=== PATIENT | female | born 1990 | race American Indian/Alaskan Native ===

== ENCOUNTER 2019-07-26 07:26 | Emergency (ER) | payer MEDICAID ==
[2019-07-26] MEDS ORDERED: REGLAN IM ONE (08:22)
[2019-07-26] MEDS ORDERED: MORPHINE IM ONE (08:22)
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
--- NOTE | 2019-07-26 09:35 | Cat Scan Report ---
CT HEAD WITHOUT CONTRAST INDICATION : Headache for 3 days. TECHNIQUE: Axial imaging performed from the skull apex through the skull base without the use of con trast. Sagittal and coronal reformatted images. All CT scans at this location are performed using C T dose reduction for ALARA by means of automated exposure control. COMPARISON: None FINDINGS: Parenchyma: No acute intracranial hemorrhage or parenchymal abnormality. Ventricles: Ventricles are normal in size and appear symmetric. Bones: No acute osseous abnormality. Sinuses: Sinuses and mastoid air cells are clear. Soft tissues: Soft tissues including the orbits appear normal. IMPRESSION: No acute abnormality. Signer Name: Jimmy Rnagel Jr, MD Signed: 07/26/2019 9:31 AM Workstation Name: [id number]
[2019-07-26 11:50] VITALS: BP 134/90
== END 2019-07-26 11:49 | disposition home or self-care (01) ==
LOC: ED 07:26
DX: R51 Headache (principal); F17.200 Nicotine dependence, unspecified, uncomplicated; R11.2 Nausea with vomiting, unspecified; Z90.49 Acquired absence of other specified parts of digestive tract
CPT/HCPCS: 70450; 96372; 99283; J2270; J2765

== ENCOUNTER 2019-08-31 06:09 | Inpatient (IN) | payer MEDICAID ==
[2019-08-31] MEDS ORDERED: MORPHINE IV ONE (06:41)
[2019-08-31] MEDS ORDERED: NACL 0.9% 1000 ML 1,000 ML IV ONE ×2 (06:41→12:11)
[2019-08-31] MEDS ORDERED: ZOFRAN IV ONE ×2 (06:41→08:45)
[2019-08-31 06:45] LABS: Basophils % (Auto) 0.2 % (0.0-1.8); Eosinophils % (Auto) 0.1 % (0.0-4.3); Hematocrit 39.6 % (30.3-42.9); Hemoglobin 13.8 gm/dl (10.1-14.3); Lymphocytes # (Auto) 2.4 K/mm3 (1.2-5.4); Lymphocytes % (Auto) 14.1 % (13.4-35.0); Mean Corpuscular HGB Conc 35 % (30-34); Mean Corpuscular Volume 91 fl (79-97); Monocytes # (Auto) 1.1 K/mm3 (0.0-0.8); Monocytes % (Auto) 6.5 % (0.0-7.3); Platelet Count 296 K/mm3 (140-440); Red Blood Count 4.34 M/mm3 (3.65-5.03); Red Cell Distribution Width 12.9 % (13.2-15.2)
[2019-08-31 07:23] LABS: Alanine Aminotransferase 20 units/L (7-56); Albumin 4.3 g/dL (3.9-5); BUN/Creatinine Ratio 18; Blood Urea Nitrogen 9 mg/dL (7-17); Calcium 9.4 mg/dL (8.4-10.2); Hemolysis Index 7
[2019-08-31 08:16] LABS: Bacteria,Urine 1+ /HPF (Negative); Bilirubin,Urine NEG (Negative); Blood,Urine NEG (Negative); Color,Urine Yellow (Yellow); Mucus,Urine 2+ /HPF; Urobilinogen,Urine < 2.0 mg/dL (<2.0)
[2019-08-31] MEDS ORDERED: TORADOL IV ONE ×2 (08:45→12:11)
[2019-08-31] MEDS ORDERED: PEPCID IV ONE (08:45)
--- NOTE | 2019-08-31 08:47 | Emergency Department Report ---
ED Abdominal Pain HPI - General Chief Complaint: Abdominal Pain Stated Complaint: ABD PAIN Time Seen by Provider: 08/31/19 07:50 Source: patient Mode of arrival: Wheelchair Limitations: No Limitations - History of Present Illness Initial Comments: This is a 28-year-old female who presents to ED complaining of right lower quadrant pain that started Friday and has gotten worse. Patient states pain is sharp and intermittently getting worse. MD Complaint: abdominal pain Location: diffuse, suprapubic Radiation: none Migration to: no migration Severity: moderate, severe Severity scale (0 -10): 10 Quality: cramping, stabbing, aching Consistency: constant - Related Data Previous Rx's Medication Instructions Recorded Last Taken Type traMADol [Ultram] 50 mg PO Q6HR PRN #7 tablet 07/26/19 Unknown Rx Famotidine [Pepcid] 10 mg PO BID #20 tablet 08/31/19 Unknown Rx Nitrofurantoin Crisp/M-Cryst 100 mg PO Q12HR #14 capsule 08/31/19 Unknown Rx [Macrobid CAP] Ondansetron [Zofran ODT TAB] 4 mg PO Q8HR PRN #15 tab.rapdis 08/31/19 Unknown Rx Allergies Allergy/AdvReac Type Severity Reaction Status Date / Time No Known Allergies Allergy Verified 08/31/19 06:17 ED Review of Systems ROS: Stated complaint: ABD PAIN Other details as noted in HPI Comment: All other systems reviewed and negative ED Past Medical Hx - Past Medical History Previous Medical History?: No - Surgical History Past Surgical History?: Yes Hx Cholecystectomy: Yes Additional Surgical History: C section x2. lumbar. cervical - Social History Smoking Status: Current Every Day Smoker Substance Use Type: None - Medications Home Medications: Home Medications Medication Instructions Recorded Confirmed Last Taken Type traMADol [Ultram] 50 mg PO Q6HR PRN #7 tablet 07/26/19 Unknown Rx Famotidine [Pepcid] 10 mg PO BID #20 tablet 08/31/19 Unknown Rx Nitrofurantoin Crisp/M-Cryst 100 mg PO Q12HR #14 capsule 08/31/19 Unknown Rx [Macrobid CAP] Ondansetron [Zofran ODT TAB] 4 mg PO Q8HR PRN #15 tab.rapdis 08/31/19 Unknown Rx ED Physical Exam - General Limitations: No Limitations General appearance: alert, in no apparent distress - Head Head exam: Present: atraumatic, normocephalic - Eye Eye exam: Present: normal appearance - ENT ENT exam: Present: mucous membranes moist - Neck Neck exam: Present: normal inspection - Respiratory Respiratory exam: Present: normal lung sounds bilaterally. Absent: respiratory distress - Cardiovascular Cardiovascular Exam: Present: regular rate, normal rhythm. Absent: systolic murmur, diastolic murmur, rubs, gallop - GI/Abdominal GI/Abdominal exam: Present: soft, tenderness, guarding, rebound, normal bowel sounds. Absent: distended, rigid, mass, bruit - Expanded GI/Abdominal Exam Expanded GI/Abdominal exam: Present: psoas sign, Mahoney's sign, Rovsing's sign - Extremities Exam Extremities exam: Present: normal inspection - Back Exam Back exam: Present: normal inspection - Neurological Exam Neurological exam: Present: alert, oriented X3 - Psychiatric Psychiatric exam: Present: normal affect, normal mood - Skin Skin exam: Present: warm, dry, intact, normal color. Absent: rash ED Course Vital Signs 08/31/19 08/31/19 08/31/19 06:11 10:02 15:09 Temperature 98.9 F 99.2 F Pulse Rate 113 H 80 78 Respiratory 24 17 16 Rate Blood Pressure 142/86 112/59 Blood Pressure 136/70 [Left] O2 Sat by Pulse 100 99 99 Oximetry - Reevaluation(s) Reevaluation #1: 08/31/19 10:35 Upon reevaluation patient is still having right lower quadrant pain, distress due to pain. position and laying on her bed. Guarding to the right lower quadrant. Signed CT scan does not confidently show the appendix so ultrasound of the abdomen and pelvis was ordered Ultrasound pending. Vital signs are stable at the moment. 08/31/19 10:36 - Consultations Consultation #1: Discussed case with surgical attending application architect Dr. oquendo who evaluated the patient and agrees the patient is to be admitted for observation and then possible surgery tomorrow 08/31/19 14:10 Consultation #2: Attending Dr. Gagnon discussed case with attending physician application architect Dr. Rivers 08/31/19 14:11 ED Medical Decision Making - Lab Data Result diagrams: 09/01/19 05:57 09/01/19 05:57 - Radiology Data Radiology results: report reviewed, image reviewed CT ABDOMEN AND PELVIS WITH CONTRAST HISTORY: Right lower quadrant abdominal pain COMPARISON: None. TECHNIQUE: Axial CT images were obtained through the abdomen and pelvis after 100 cc of Omnipaque 300 intravenously. Sagittal and coronal reformatted images. All CT scans at this location are performed using CT dose reduction for ALARA by means of automated exposure control. FINDINGS: CT ABDOMEN: Lung Bases: Clear. Liver: No significant abnormality. Biliary: Cholecystectomy. Mild biliary prominence is likely secondary to surgery. Spleen: No significant abnormality. Unenlarged. Pancreas: No significant abnormality. Adrenals: No significant abnormality. Kidneys: No significant abnormality. Lymphatics: No lymphadenopathy. Vasculature: No significant abnormality. Bowel/Peritoneum: No evidence for bowel obstruction, focal inflammation or mass. No free fluid or free air. The appendix is not confidently identified, correlate with surgical history. CT PELVIS: : No significant abnormality. Osseous Structures: No significant abnormality. Additional Findings: None IMPRESSION: No significant abnormality. Signer Name: Jimmy Rangel Jr, MD Signed: 08/31/2019 8:56 AM Workstation Name: [id number] Transcribed By: TTR Dictated By: JIMMY RANGEL JR, MD Electronically Authenticated By: JIMMY RANGEL JR, MD Signed Date/Time: 08/31/19 0856 - Medical Decision Making 28-year-old female presents with moderate right lower quadrant pain. CBC shows elevated leukocytoses, urinalysis within normal limits, all other labs within normal limits, lactic acid amylase and lipase pending Due to patient's clinical symptoms cannot rule out appendicitis. Abdominal pelvic CT scan and ultrasound cannot visualize the appendix is reporte d above. Case is discussed with surgery who will attend laparoscopic surgery today Patient to be admitted - Differential Diagnosis appendicitis, pancreatitis, endometriosis, Critical care attestation.: If time is entered above; I have spent that time in minutes in the direct care of this critically ill patient, excluding procedure time. ED Disposition Clinical Impression: Abdominal pain Disposition: OP ADMIT IP TO THIS HOSP Is pt being admited?: Yes Does the pt Need Aspirin: No Condition: Stable Time of Disposition: 10:03
--- NOTE | 2019-08-31 09:01 | Cat Scan Report ---
CT ABDOMEN AND PELVIS WITH CONTRAST HISTORY: Right lower quadrant abdominal pain COMPARISON: None. TECHNIQUE: Axial CT images were obtained through the abdomen and pelvis after 100 cc of Omnipaque 300 intravenously. Sagittal and coronal reformatted images. All CT scans at this location are performed using CT dose reduction for ALARA by means of automated exposure control. FINDINGS: CT ABDOMEN: Lung Bases: Clear. Liver: No significant abnormality. Biliary: Cholecystectomy. Mild biliary prominence is likely secondary to surgery. Spleen: No significant abnormality. Unenlarged. Pancreas: No significant abnormality. Adrenals: No significant abnormality. Kidneys: No significant abnormality. Lymphatics: No lymphadenopathy. Vasculature: No significant abnormality. Bowel/Peritoneum: No evidence for bowel obstruction, focal inflammation or mass. No free fluid or nisreen e air. The appendix is not confidently identified, correlate with surgical history. CT PELVIS: : No significant abnormality. Osseous Structures: No significant abnormality. Additional Findings: None IMPRESSION: No significant abnormality. Signer Name: Jimmy Rangel Jr, MD Signed: 08/31/2019 8:56 AM Workstation Name: [id number]
--- NOTE | 2019-08-31 12:23 | Ultrasound Report ---
PELVIC ULTRASOUND. 08/31/2019. HISTORY: Right lower quadrant pain. FINDINGS: Imaging was performed by transabdominally and endovaginally. The uterus measures 9.8 x 4.5 x 5.4 cm. Endometrial stripe measures 9 mm. A small amount of fluid/debris is seen at the lower uteri ne segment. Right ovary measures 5.3 x 3.1 x 4.1 cm. Left ovary measures 2.9 x 1.9 x 3.1 cm. Both ovaries demonst rate appropriate flow. No adnexal mass or fluid is present. IMPRESSION: 1. Mild fluid/debris at the lower uterine segment. 2. Prominent right ovary without discrete abnormality. LIMITED ABDOMINAL ULTRASOUND. 08/31/2019. HISTORY: Right lower quadrant pain. FINDINGS: Ultrasound of the right lower quadrant was performed. The imaged portions of the liver and right kidney are normal. Negative right lower quadrant inflammatory process or fluid collection is id entified. The appendix is not seen. IMPRESSION: Unremarkable ultrasound of the right lower quadrant. Signer Name: Matthew Lopez MD Signed: 08/31/2019 12:18 PM Workstation Name: [id number]
[2019-08-31] MEDS ORDERED: ZOSYN/NS 2.25 GM/50ML 2.25 GM/50 ML BAG IV ONE (14:06)
--- NOTE | 2019-08-31 14:51 | Consultation ---
History of Present Illness Consult date: 08/31/19 Reason for consult: abdominal pain Chief complaint: RLQ pain - History of present illness History of present illness: 28 year old female with a three day history of worsening abdominal pain. She says it started about 6/10 and has gotten progressively worse. She admits to some nausea and vomiting prior to coming to the ER, and denies having this pain in the past. The pain radiates to her back. She had a CT scan and US that could not identify the appendix definitively. Past History Past Medical History: No medical history Past Surgical History: cholecystectomy, Family history: diabetes, hypertension Medications and Allergies Allergies Allergy/AdvReac Type Severity Reaction Status Date / Time No Known Allergies Allergy Verified 08/31/19 06:17 Home Medications Medication Instructions Recorded Confirmed Last Taken Type traMADol [Ultram] 50 mg PO Q6HR PRN #7 tablet 07/26/19 Unknown Rx Famotidine [Pepcid] 10 mg PO BID #20 tablet 08/31/19 Unknown Rx Nitrofurantoin Bladen/M-Cryst 100 mg PO Q12HR #14 capsule 08/31/19 Unknown Rx [Macrobid CAP] Ondansetron [Zofran ODT TAB] 4 mg PO Q8HR PRN #15 tab.rapdis 08/31/19 Unknown Rx Review of Systems - Constitutional poor appetite, no fever, no chills - Cardiovascular no chest pain - Respiratory no shortness of breath - Gastrointestinal abdominal pain, nausea, vomiting - Genitourinary Genitourinary: no dysuria Exam Vital Signs Temp Pulse Resp BP Pulse Ox 98.9 F 113 H 24 142/86 100 08/31/19 06:11 08/31/19 06:11 08/31/19 06:11 08/31/19 06:11 08/31/19 06:11 - General physical appearance Positive: well developed, no distress - Respiratory Positive: normal expansion, normal respiratory effort - Cardiovascular Rhythm: regular - Extremities Extremities: no ischemia - Abdomen Abdomen: Present: soft, other (tender to the right lower quadrant with palpation. some guarding, no rebound, obese) Results - Labs 08/31/19 06:36 08/31/19 06:36 Abnormal lab results 08/31/19 08/31/19 08/31/19 Range/Units 06:36 06:36 07:58 WBC 17.4 H (4.5-11.0) K/mm3 MCHC 35 H (30-34) % RDW 12.9 L (13.2-15.2) % Bladen # 1.1 H (0.0-0.8) K/mm3 Seg Neutrophils % 79.1 H (40.0-70.0) % Seg Neutrophils # 13.7 H (1.8-7.7) K/mm3 Carbon Dioxide 19 L (22-30) mmol/L Creatinine 0.5 L (0.7-1.2) mg/dL Glucose 106 H (65-100) mg/dL Lactic Acid (0.7-2.0) mmol/L Total Protein 8.4 H (6.3-8.2) g/dL Lipase (13-60) units/L Urine pH 8.0 H (5.0-7.0) 08/31/19 08/31/19 Range/Units 12:42 12:42 WBC (4.5-11.0) K/mm3 MCHC (30-34) % RDW (13.2-15.2) % Bladen # (0.0-0.8) K/mm3 Seg Neutrophils % (40.0-70.0) % Seg Neutrophils # (1.8-7.7) K/mm3 Carbon Dioxide (22-30) mmol/L Creatinine (0.7-1.2) mg/dL Glucose (65-100) mg/dL Lactic Acid 0.50 L (0.7-2.0) mmol/L Total Protein (6.3-8.2) g/dL Lipase 9 L (13-60) units/L Urine pH (5.0-7.0) Diabetes panel 08/31/19 Range/Units 06:36 Sodium 138 (137-145) mmol/L Potassium 3.7 (3.6-5.0) mmol/L Chloride 101.4 (98-107) mmol/L Carbon Dioxide 19 L (22-30) mmol/L BUN 9 (7-17) mg/dL Creatinine 0.5 L (0.7-1.2) mg/dL Glucose 106 H (65-100) mg/dL Calcium 9.4 (8.4-10.2) mg/dL AST 12 (5-40) units/L ALT 20 (7-56) units/L Alkaline Phosphatase 87 (35-129) units/L Total Protein 8.4 H (6.3-8.2) g/dL Albumin 4.3 (3.9-5) g/dL Calcium panel 08/31/19 Range/Units 06:36 Calcium 9.4 (8.4-10.2) mg/dL Albumin 4.3 (3.9-5) g/dL Pituitary panel 08/31/19 Range/Units 06:36 Sodium 138 (137-145) mmol/L Potassium 3.7 (3.6-5.0) mmol/L Chloride 101.4 (98-107) mmol/L Carbon Dioxide 19 L (22-30) mmol/L BUN 9 (7-17) mg/dL Creatinine 0.5 L (0.7-1.2) mg/dL Glucose 106 H (65-100) mg/dL Calcium 9.4 (8.4-10.2) mg/dL Adrenal panel 08/31/19 Range/Units 06:36 Sodium 138 (137-145) mmol/L Potassium 3.7 (3.6-5.0) mmol/L Chloride 101.4 (98-107) mmol/L Carbon Dioxide 19 L (22-30) mmol/L BUN 9 (7-17) mg/dL Creatinine 0.5 L (0.7-1.2) mg/dL Glucose 106 H (65-100) mg/dL Calcium 9.4 (8.4-10.2) mg/dL Total Bilirubin 0.90 (0.1-1.2) mg/dL AST 12 (5-40) units/L ALT 20 (7-56) units/L Alkaline Phosphatase 87 (35-129) units/L Total Protein 8.4 H (6.3-8.2) g/dL Albumin 4.3 (3.9-5) g/dL - Imaging CT scan - abdomen: report reviewed, image reviewed CT scan - pelvis: report reviewed, image reviewed US - abdomen: report reviewed US - pelvic: report reviewed Assessment and Plan RLQ pain of unclear etiology, presentation and clinical symptoms consistent with acute appendix although appendix could not be visually verified on imaging. Leukocytosis, but stable and afebrile. Will take to OR for dx lap and probable appendectomy.
[2019-08-31] MEDS ORDERED: ZOFRAN IV PRN (15:05)
[2019-08-31] MEDS ORDERED: PROVENTIL IH PRN (15:05)
[2019-08-31] MEDS ORDERED: SODIUM CHLORIDE FLUSH SYRINGE 10 ML IV PRN (15:05)
[2019-08-31] MEDS ORDERED: TYLENOL PO PRN (15:05)
--- NOTE | 2019-08-31 15:05 | History and Physical Report ---
History of Present Illness Chief complaint: My stomach hurts History of present illness: 28 YO Female with Nicotine Dependence, Obesity presents to ED for evaluation of abdominal pain. Pt states that she has experienced abdominal pain over the past 4 days with progressively worsening symptoms over the same time frame. Pt states that pain is 6-10/10, diffuse, nonradiating, crampy in nature, worsened with movement and palpitation. Pt acknowledges nausea. Pt transported to [facility] via private vehicle. Pt seen and evaluated in ED and found to have Abdominal pain secondary to Appendicitis, and SIRS. Pt denies fever, chills, CP, Palpitations, Trauma, BRBPR, Productive cough, skin rash, ingestion of food/water from new/d ifferent sources. Surgery consulted in ED and patient taken to OR for surgical intervention. No prior admission for review. No medication listed for reconciliation at time of admission. Past History Past Medical History: No medical history, other (see hpi) Past Surgical History: cholecystectomy, Social history: single Family history: diabetes, hypertension Medications and Allergies Allergies Allergy/AdvReac Type Severity Reaction Status Date / Time No Known Allergies Allergy Verified 08/31/19 06:17 Home Medications Medication Instructions Recorded Confirmed Last Taken Type traMADol [Ultram] 50 mg PO Q6HR PRN #7 tablet 07/26/19 Unknown Rx Famotidine [Pepcid] 10 mg PO BID #20 tablet 08/31/19 Unknown Rx Nitrofurantoin [place]/M-Cryst 100 mg PO Q12HR #14 capsule 08/31/19 Unknown Rx [Macrobid CAP] Ondansetron [Zofran ODT TAB] 4 mg PO Q8HR PRN #15 tab.rapdis 08/31/19 Unknown Rx Review of Systems Constitutional: no weight loss, no weight gain, no fever, no chills Ears, nose, mouth and throat: no ear pain, no ear discharge, no tinnitis, no nasal discharge Breasts: no change in shape, no swelling, no mass Cardiovascular: no chest pain, no orthopnea, no palpitations, no rapid/irregular heart beat, no edema Respiratory: no cough, no cough with sputum, no excessive sputum, no shortness of breath Gastrointestinal: abdominal pain, nausea, no vomiting, no diarrhea, no change in bowel habits, no hematemesis, no BRBPR, no melena, no hematochezia Genitourinary Female: no pelvic pain, no flank pain, no menorrhagia, no dysuria, no urinary frequency, no urgency Rectal: no pain, no incontinence, no bleeding Musculoskeletal: no neck stiffness, no neck pain, no arm numbness/tingling, no leg numbness/tingling Integumentary: no rash, no redness, no sores, no wounds Neurological: no head injury, no paralysis, no weakness, no parathesias, no tingling, no seizures, no syncope, no ataxia Psychiatric: no anxiety, no memory loss, no change in sleep habits, no sleep disturbances, no hypersomnia, no change in appetite, no change in libido Endocrine: no cold intolerance, no heat intolerance, no polyphagia, no excessive thirst, no polyuria, no nocturia, no excessive sweating, no flushing Hematologic/Lymphatic: no easy bruising, no easy bleeding, no lymphadenopathy, no lymphedema Allergic/Immunologic: no urticaria, no allergic rhinitis, no wheezing, no persistent infections, no anaphylaxis Exam - Constitutional Vitals: Temp Pulse Resp BP Pulse Ox 99.2 F 80 17 112/59 99 08/31/19 10:02 08/31/19 10:02 08/31/19 10:02 08/31/19 10:02 08/31/19 10:02 General appearance: Present: mild distress - EENT Eyes: Present: PERRL ENT: hearing intact, clear oral mucosa - Neck Neck: Present: supple, normal ROM - Respiratory Respiratory effort: normal Respiratory: bilateral: CTA - Cardiovascular Heart Sounds: Present: S1 & S2. Absent: rub, click - Extremities Extremities: pulses symmetrical, No edema Peripheral Pulses: within normal limits - Abdominal General gastrointestinal: Present: soft, tender, non-distended, normal bowel sounds. Absent: hepatomegaly, splenomegaly, mass Female genitourinary: Present: normal - Integumentary Integumentary: Present: clear, warm, dry - Musculoskeletal Musculoskeletal: gait normal, strength equal bilaterally - Psychiatric Psychiatric: appropriate mood/affect, intact judgment & insight - Neurologic Neurologic: CNII-XII intact, moves all extremities Results - Labs CBC & Chem 7: 08/31/19 06:36 08/31/19 06:36 Labs: Abnormal lab results 08/31/19 08/31/19 08/31/19 Range/Units 06:36 06:36 07:58 WBC 17.4 H (4.5-11.0) K/mm3 MCHC 35 H (30-34) % RDW 12.9 L (13.2-15.2) % [place] # 1.1 H (0.0-0.8) K/mm3 Seg Neutrophils % 79.1 H (40.0-70.0) % Seg Neutrophils # 13.7 H (1.8-7.7) K/mm3 Carbon Dioxide 19 L (22-30) mmol/L Creatinine 0.5 L (0.7-1.2) mg/dL Glucose 106 H (65-100) mg/dL Lactic Acid (0.7-2.0) mmol/L Total Protein 8.4 H (6.3-8.2) g/dL Lipase (13-60) units/L Urine pH 8.0 H (5.0-7.0) 08/31/19 08/31/19 Range/Units 12:42 12:42 WBC (4.5-11.0) K/mm3 MCHC (30-34) % RDW (13.2-15.2) % [place] # (0.0-0.8) K/mm3 Seg Neutrophils % (40.0-70.0) % Seg Neutrophils # (1.8-7.7) K/mm3 Carbon Dioxide (22-30) mmol/L Creatinine (0.7-1.2) mg/dL Glucose (65-100) mg/dL Lactic Acid 0.50 L (0.7-2.0) mmol/L Total Protein (6.3-8.2) g/dL Lipase 9 L (13-60) units/L Urine pH (5.0-7.0) Assessment and Plan - Patient Problems (1) Appendicitis Current Visit: Yes Status: Acute Qualifiers: Appendicitis abscess presence: unspecified whether abscess present Plan to address problem: IV antibiotic therapy, CBC, CMP, CT Abdomen/Pelvis, bowel rest, Surgery consulted, Pt pending surgical intervention. (2) SIRS (systemic inflammatory response syndrome) Current Visit: Yes Status: Acute Plan to address problem: IV antibiotic therapy, IVF resuscitation therapy, CBC, CMP, Chest x ray, urinalysis (3) Nicotine dependence Current Visit: Yes Status: Acute Qualifiers: Substance use status: in withdrawal Plan to address problem: smoking cessation counseling +15min, supportive care. (4) Obesity Current Visit: Yes Status: Acute Plan to address problem: Balanced diet, increased physical activity at discharge. (5) DVT prophylaxis Current Visit: Yes Status: Acute Plan to address problem: SCD to BLE while in bed, pt ambulatory
[2019-08-31] MEDS ORDERED: FLAGYL 500 MG/100 ML 500 MG/100 ML BAG IV SCH (15:13)
[2019-08-31] MEDS ORDERED: LACTATED RINGERS 1,000 ML ONE ×2 (15:30→17:15)
[2019-08-31] MEDS ORDERED: VERSED ONE (15:31)
[2019-08-31] MEDS ORDERED: DIPRIVAN 10 MG/ML IV ONE (15:32)
[2019-08-31] MEDS ORDERED: SUBLIMAZE ONE (15:32)
[2019-08-31] MEDS ORDERED: DILAUDID IV PRN (15:34)
--- NOTE | 2019-08-31 15:34 | Anesthesia Day of Surgery ---
Anesthesia Day of Surgery - Day of Surgery Patient Examined: Yes Patient H&P Reviewed: Yes Patient is NPO: Yes
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
[2019-08-31] MEDS ORDERED: MARCAINE 0.5% INFILTRATI ONE ×2 (15:43→16:42)
[2019-08-31] MEDS ORDERED: XYLOCAINE 1% 20 mL ONE (15:43)
[2019-08-31] MEDS ORDERED: NACL 0.9% IR ONE (16:42)
[2019-08-31] MEDS ORDERED: XYLOCAINE 1% 20 mL INFILTRATI ONE (16:42)
[2019-08-31] MEDS ORDERED: XYLOCAINE MPF 2% ONE (16:46)
[2019-08-31] MEDS ORDERED: DECADRON ONE (16:46)
[2019-08-31] MEDS ORDERED: REGLAN ONE (16:46)
[2019-08-31] MEDS ORDERED: ZEMURON IV ONE (16:46)
[2019-08-31] MEDS ORDERED: ZOFRAN ONE (16:46)
[2019-08-31] MEDS ORDERED: DILAUDID ONE (16:49)
[2019-08-31] MEDS ORDERED: TORADOL ONE (16:51)
[2019-08-31] MEDS ORDERED: ROBINUL ONE (17:36)
[2019-08-31] MEDS ORDERED: BLOXIVERZ ONE (17:36)
--- NOTE | 2019-08-31 17:49 | Consultation ---
History of Present Illness - Reason for Consult Consult date: 08/31/19 Intra operative consult - History of Present Illness I was called into operating Rm 3 to look at a saccular swelling in the isthmic aspect of the right fallopian tube. There appeared to be an inflamatory eschar on the serosal aspect of the this tube, with no discharge from the fimbrial end. The ovary was not involved. The test was known to be negative. The appendix was removed but had been free from the eschar. My impression was of a well localized collection of fluid,likely inflamatory, within the right fallopian tube. If inflamatory, resolution could be achieved with antibiotics and follow up as outpatient. Past History Past Medical History: No medical history, other (see hpi) Past Surgical History: cholecystectomy, Social history: single Family history: diabetes, hypertension Medications and Allergies Allergies Allergy/AdvReac Type Severity Reaction Status Date / Time No Known Allergies Allergy Verified 08/31/19 06:17 Home Medications Medication Instructions Recorded Confirmed Last Taken Type traMADol [Ultram] 50 mg PO Q6HR PRN #7 tablet 07/26/19 Unknown Rx Famotidine [Pepcid] 10 mg PO BID #20 tablet 08/31/19 Unknown Rx Nitrofurantoin [place]/M-Cryst 100 mg PO Q12HR #14 capsule 08/31/19 Unknown Rx [Macrobid CAP] Ondansetron [Zofran ODT TAB] 4 mg PO Q8HR PRN #15 tab.rapdis 08/31/19 Unknown Rx Active Meds: Active Medications Acetaminophen (Tylenol) 650 mg PO Q4H PRN PRN Reason: Pain MILD(1-3)/Fever >100.5/FIGUEROA Albuterol (Proventil) 2.5 mg IH Q4HRT PRN PRN Reason: Shortness Of Breath Hydromorphone HCl (Dilaudid) 0.5 mg IV Q10MIN PRN PRN Reason: Pain , Severe (7-10) Stop: 08/31/19 23:59 Piperacillin Sod/Tazobactam Sod (Zosyn/Ns 4.5gm/100ml) 4.5 gm in 100 mls @ 200 mls/hr IV Q8HR MISTY; Protocol Stop: 09/02/19 23:59 Metronidazole (Flagyl 500 Mg/100 Ml) 500 mg in 100 mls @ 100 mls/hr IV Q8HR MISTY; Protocol Stop: 09/02/19 23:59 Ondansetron HCl (Zofran) 4 mg IV Q8H PRN PRN Reason: Nausea And Vomiting Sodium Chloride (Sodium Chloride Flush Syringe 10 Ml) 10 ml IV BID MISTY Sodium Chloride (Sodium Chloride Flush Syringe 10 Ml) 10 ml IV PRN PRN PRN Reason: LINE FLUSH Exam - Constitutional Vitals: Temp Pulse Resp BP Pulse Ox 99.2 F 78 16 136/70 99 08/31/19 10:02 08/31/19 15:09 08/31/19 15:09 08/31/19 15:09 08/31/19 15:09 Results - Labs CBC & Chem 7: 08/31/19 06:36 08/31/19 06:36 Labs: Abnormal lab results 08/31/19 08/31/19 08/31/19 Range/Units 06:36 06:36 07:58 WBC 17.4 H (4.5-11.0) K/mm3 MCHC 35 H (30-34) % RDW 12.9 L (13.2-15.2) % [place] # 1.1 H (0.0-0.8) K/mm3 Seg Neutrophils % 79.1 H (40.0-70.0) % Seg Neutrophils # 13.7 H (1.8-7.7) K/mm3 Carbon Dioxide 19 L (22-30) mmol/L Creatinine 0.5 L (0.7-1.2) mg/dL Glucose 106 H (65-100) mg/dL Lactic Acid (0.7-2.0) mmol/L Total Protein 8.4 H (6.3-8.2) g/dL Lipase (13-60) units/L Urine pH 8.0 H (5.0-7.0) 08/31/19 08/31/19 Range/Units 12:42 12:42 WBC (4.5-11.0) K/mm3 MCHC (30-34) % RDW (13.2-15.2) % [place] # (0.0-0.8) K/mm3 Seg Neutrophils % (40.0-70.0) % Seg Neutrophils # (1.8-7.7) K/mm3 Carbon Dioxide (22-30) mmol/L Creatinine (0.7-1.2) mg/dL Glucose (65-100) mg/dL Lactic Acid 0.50 L (0.7-2.0) mmol/L Total Protein (6.3-8.2) g/dL Lipase 9 L (13-60) units/L Urine pH (5.0-7.0)
--- NOTE | 2019-08-31 18:07 | Operative Report ---
Operative Report Operative Report: DATE: 08/31/2019 PRE-OP DX: ABDOMINAL PAIN POST-OP DX: RIGHT SALPINGITIS PROCEDURE: LAPAROSCOPIC APPENDECTOMY ANESTHESIA: GETA INDICATION: 28 YO FEMALE PRESENTED TO ER WITH 3 DAY HX OF RIGHT LOWER QUADRANT ABDOMINAL PAIN. IMAGING WITH CT SCAN AND US COULD NOT VISUALIZE APPENDIX. WBC: 17K. IT WAS DECIDED TO PERFORM A DIAGNOSTIC LAPAROSCOPY WITH PROBABLE APPENDECTOMY TO EXCLUDE IT SOURCE OF PAIN. PT SIGNED INFORMED CONSENT. FINDINGS: MINIMALLY INFLAMED APPENDIX WITH PURULENT EXUDATE IN THE RIGHT ADNEXA. DILATED FALLOPIAN TUBE. DETAILS OF PROCEDURE: PT WAS BROUGHT INTO OR SUITE AND LAID INTO SUPINE POSITION. BILATERAL LOWER EXTREMITY SCD WERE PLACED. GENERAL ANESTHESIA WAS INDUCED WITH SUCCESSFUL ENDOTRACHEAL INTUBATION. PT ABDOMEN WAS PREPPED AND DRAPED IN STERILE FASHION. USING A VERESS NEEDLE THE ABDOMEN WAS INSUFLATED TO A PRESSURE OF 15MMHG. A 5MM TROCAR WAS PLACED SUPERIOR AND JUST LEFT OF THE UMBILICUS USING OPTIVIEW TECHNIQUE. THERE WAS NO GROSS INJURY TO ANY INTRA- ABDOMINAL STRUCTURES. TWO WORKING TROCARS WERE PLACED UNDER DIRECT VISUALIZATION. A 5MM IN THE SUPRA PUBIC AREA AND A 12MM TROCAR ON THE LEFT SIDE MID ABDOMEN. THE APPENDIX WAS IDENTIFIED AND LOCATED MEDIAL AND POSTERIOR TO THE CECUM. IT APPEARED GROSSLY NORMAL. THE MESO-APPENDIX WAS TRANSECTED WITH A LIGA-SURE DEVICE, AND THE APPENDIX WAS AMPUTATED WITH A WHITE LOAD ON AN LAPAROSCOPIC STAPLER. THE STAPLE LINE WAS INSPECTED AND FOUND TO BE HEMOSTATICALLY SOUND. THE RIGHT ADNEXA WAS NOTED TO INFLAMED, WITH A DILATED FALLOPIAN TUBE AND ADHERENT PURULENT EXUDATE. THE RIGHT OVARY APPEARED NORMAL, THE LEFT OVARY DID NOT APPEAR INFLAMED WELL. DR JAVED WAS CONSULTED INTRA-OP AND HE AGREED THAT THE LIKELY CAUSE OF HER PAIN IS THE ADNEXAL INFLAMMATORY PROCESS THAT CAN BE TREATED WITH A COURSE OF ANTIBIOTICS AND SHE CAN FOLLOW UP WITH HER PUBLIC RELATIONS WRITER IN TWO WEEKS. THE APPENDIX WAS REMOVED VIA AND ENDO CATCH BAG AND REMOVED VIA THE 12MM TROCAR SITE. ALL SKIN INCISIONS WERE CLOSED WITH 4-O MONOCRYL FOLLOWED BY DERMABOND. PT WAS AWOKEN, EXTUBATED, AND TAKEN TO RECOVERY IN STABLE CONDITION. ALL COUNTS WERE CORRECT. SPECIMEN: APPENDIX EBL: MINIMAL <5ML COMPLICATIONS: NONE IMMEDIATE
[2019-08-31] MEDS ORDERED: MORPHINE IV PRN (19:15)
[2019-08-31] MEDS ORDERED: TORADOL IV PRN (19:15)
[2019-08-31] MEDS ORDERED: ROCEPHIN/NS 2 GM/100 ML 2 GM/100 ML BAG IV SCH (20:00)
[2019-08-31] MEDS ORDERED: ZOSYN/NS 4.5GM/100ML 4.5 GM/100 ML VIAL IV SCH (22:00)
[2019-08-31] MEDS: SODIUM CHLORIDE FLUSH SYRINGE 10 ML IV SCH (22:55)
[2019-08-31] MEDS: PERCOCET 5/325 PO PRN (23:19)
[2019-09-01] MEDS: PERCOCET 5/325 PO PRN ×2 (05:34→11:49)
[2019-09-01 06:13] LABS: Basophils % (Auto) 0.2 % (0.0-1.8); Eosinophils % (Auto) 0.1 % (0.0-4.3); Hematocrit 37.4 % (30.3-42.9); Hemoglobin 12.7 gm/dl (10.1-14.3); Lymphocytes # (Auto) 1.3 K/mm3 (1.2-5.4); Lymphocytes % (Auto) 9.9 % (13.4-35.0); Mean Corpuscular HGB Conc 34 % (30-34); Mean Corpuscular Volume 94 fl (79-97); Monocytes # (Auto) 0.6 K/mm3 (0.0-0.8); Monocytes % (Auto) 4.3 % (0.0-7.3); Platelet Count 268 K/mm3 (140-440); Red Blood Count 3.99 M/mm3 (3.65-5.03)
[2019-09-01 06:43] LABS: Alanine Aminotransferase 137 units/L (7-56); Albumin 3.8 g/dL (3.9-5); BUN/Creatinine Ratio 28; Blood Urea Nitrogen 11 mg/dL (7-17); Hemolysis Index 16
--- NOTE | 2019-09-01 08:51 | Post Anesthesia Evaluation ---
- Post Anesthesia Evaluation Patient Participated: Yes Airway Patent: Yes Stable Respiratory Function: Yes Nausea/Vomiting: No Temp > 96.8F: Yes Pain Manageable: Yes Adequeate Hydration: Yes Anesthesia Complications: No
--- NOTE | 2019-09-01 10:59 | Progress Note ---
Assessment and Plan POD#1 s/p lap appendectomy (appendix appeared grossly normal) for RLQ pain, with the presumed etiology of the pain to be inflammation/infection of the right fallopian tube. Stable, afebrile, with WBC trending down. No further intervention needed at this time from a general surgery perspective and can be discharged with follow up in two weeks [phone] Per CLIENT INSIGHTS CONSULTANT, Dr. Alanis, pt is to complete the following course of oral antibiotics and follow up with [facility] in two weeks. She should be receiving the 1 time dose rocephin 2gm this morning IV. clindamycin 600mg Q8h x10 days doxycycline 100mg BID x 2 weeks Subjective Date of service: 09/01/19 Patient Reports: Positive: feels better, pain is less, tolerating a regular diet Objective Vital Signs - 12hr 08/31/19 08/31/19 08/31/19 23:04 23:19 23:45 Temperature 98.8 F Pulse Rate 58 L Respiratory 18 18 Rate Respiratory 18 Rate [abd] Blood Pressure 110/51 Blood Pressure [Left] O2 Sat by Pulse 100 Oximetry 09/01/19 09/01/19 09/01/19 03:58 05:34 07:00 Temperature 98.5 F 98 F Pulse Rate 54 L 72 Respiratory 18 18 16 Rate Respiratory Rate [abd] Blood Pressure 99/57 Blood Pressure 104/63 [Left] O2 Sat by Pulse 99 95 Oximetry - General physical appearance well developed, no distress - Respiratory normal expansion, normal respiratory effort - Abdomen soft, not distended, other (incisions c/d/i, appropriatley tender to palpation) - Labs 09/01/19 05:57 09/01/19 05:57 Diabetes panel 09/01/19 Range/Units 05:57 Sodium 140 (137-145) mmol/L Potassium 4.4 (3.6-5.0) mmol/L Chloride 106.0 (98-107) mmol/L Carbon Dioxide 20 L (22-30) mmol/L BUN 11 (7-17) mg/dL Creatinine 0.4 L (0.7-1.2) mg/dL Glucose 104 H (65-100) mg/dL Calcium 9.0 (8.4-10.2) mg/dL AST 73 H (5-40) units/L ALT 137 H (7-56) units/L Alkaline Phosphatase 94 (35-129) units/L Total Protein 7.6 (6.3-8.2) g/dL Albumin 3.8 L (3.9-5) g/dL Calcium panel 09/01/19 Range/Units 05:57 Calcium 9.0 (8.4-10.2) mg/dL Albumin 3.8 L (3.9-5) g/dL Pituitary panel 09/01/19 Range/Units 05:57 Sodium 140 (137-145) mmol/L Potassium 4.4 (3.6-5.0) mmol/L Chloride 106.0 (98-107) mmol/L Carbon Dioxide 20 L (22-30) mmol/L BUN 11 (7-17) mg/dL Creatinine 0.4 L (0.7-1.2) mg/dL Glucose 104 H (65-100) mg/dL Calcium 9.0 (8.4-10.2) mg/dL Adrenal panel 09/01/19 Range/Units 05:57 Sodium 140 (137-145) mmol/L Potassium 4.4 (3.6-5.0) mmol/L Chloride 106.0 (98-107) mmol/L Carbon Dioxide 20 L (22-30) mmol/L BUN 11 (7-17) mg/dL Creatinine 0.4 L (0.7-1.2) mg/dL Glucose 104 H (65-100) mg/dL Calcium 9.0 (8.4-10.2) mg/dL Total Bilirubin 0.90 (0.1-1.2) mg/dL AST 73 H (5-40) units/L ALT 137 H (7-56) units/L Alkaline Phosphatase 94 (35-129) units/L Total Protein 7.6 (6.3-8.2) g/dL Albumin 3.8 L (3.9-5) g/dL
[2019-09-01] MEDS: SODIUM CHLORIDE FLUSH SYRINGE 10 ML IV SCH (11:52)
[2019-09-01] MEDS ORDERED: VIBRAMYCIN PO SCH (12:00)
[2019-09-01 13:59] LABS: Alanine Aminotransferase 117 units/L (7-56); Albumin 3.8 g/dL (3.9-5)
[2019-09-01] MEDS ORDERED: CLEOCIN PO SCH (14:00)
[2019-09-01 14:14] LABS: Bilirubin,Direct < 0.2 mg/dL (0-0.2)
--- NOTE | 2019-09-01 15:38 | Discharge Summary ---
Providers - Providers Date of Admission: 08/31/19 15:05 Attending physician: REBECCA WHITE MD Primary care physician: CAROLYNE ACUNA MD Hospitalization Condition: Stable Hospital course: POD#1 s/p lap appendectomy (appendix appeared grossly normal) for RLQ pain, with the presumed etiology of the pain to be inflammation/infection of the right fallopian tube. Stable, afebrile, with WBC trending down. No further intervention needed at this time from a general surgery perspective and can be discharged with follow up in two weeks [phone] Per [employer]ER, Dr. Javed, pt is to complete the following course of oral antibiotics and follow up with [facility] in two weeks. She should be receiving the 1 time dose rocephin 2gm this morning IV. clindamycin 600mg Q8h x10 days doxycycline 100mg BID x 2 weeks LFT elevated post surgery, now improving, patient with no abdominal pain at this time. Tolerating diet. Disposition: DC-01 TO HOME OR SELFCARE Time spent for discharge: 35 MINS Exam - Constitutional Vitals: Temp Pulse Resp BP Pulse Ox 97.0 F L 58 L 20 118/80 97 09/01/19 11:30 09/01/19 11:30 09/01/19 11:30 09/01/19 11:30 09/01/19 11:30 Plan Activity: advance as tolerated, fall precautions Diet: low fat Special Instructions: record daily weights, record daily BP diary Care Plan Goals: REPEAT LFT IN 2-3 DAYS WITH PRIMARY CARE DOCTOR Follow up with: PRIMARY CARE, [Referring] - 3-5 Days PAIGE JAVED MD [Staff Physician] - 14 Days MICA VARGAS MD [Staff Physician] - 14 Days Prescriptions: Clindamycin [Clindamycin CAP] 600 mg PO TID #27 capsule DOXYCYCLINE Hyclate [Vibramycin CAP] 100 mg PO BID #18 capsule
[2019-09-01 16:16] VITALS: BP 109/70
== END 2019-09-01 17:15 | disposition home or self-care (01) | DRG 342 ==
LOC: ED 06:09 → 3A 15:05 → 3B-SURG 15:54
PROVIDERS: ADMIT Internal Medicine; ATTEND Internal Medicine
PROC: 0DTJ4ZZ Resection of Appendix, Percutaneous Endoscopic Approach (ICD-10-PCS; principal; 2019-08-31)
DX: K35.80 Unspecified acute appendicitis (principal); N70.01 Acute salpingitis; R65.10 Systemic inflammatory response syndrome (SIRS) of non-infectious origin without acute organ dysfunction; F17.213 Nicotine dependence, cigarettes, with withdrawal; E66.9 Obesity, unspecified; Z68.31 Body mass index [BMI] 31.0-31.9, adult; Z90.49 Acquired absence of other specified parts of digestive tract; Z79.899 Other long term (current) drug therapy; Z83.3 Family history of diabetes mellitus; Z82.49 Family history of ischemic heart disease and other diseases of the circulatory system; Z71.6 Tobacco abuse counseling
CPT/HCPCS: 36415; 74177; 76705; 76830; 76856; 80053; 80076; 81001; 82140; 82150; 83690; 84703; 85025; 88304; 94640; 94760; 96374; G0378; J0696; J1100; J1170; J1885; J2250; J2270; J2405; J2543; J2704; J2710; J2765; J3010; J7030; J7120; Q9967